=== PATIENT | male | born 1975 | race Two or more races ===

== ENCOUNTER 2017-05-30 01:41 | Emergency (ER) | payer SELFPAY ==
[2017-05-30 01:46] VITALS: RESP 16; TEMP 98.1
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
[2017-05-30 02:06] VITALS: BP 145/90; PULSE 73; O2SAT 97
== END 2017-05-30 02:07 | disposition home or self-care (01) ==
PROC: 0HQ1XZZ Repair Face Skin, External Approach (ICD-10-PCS; principal; 2017-05-30)
DX: S01.81XA Laceration without foreign body of other part of head, initial encounter (principal); Y04.0XXA Assault by unarmed brawl or fight, initial encounter; Y92.89 Other specified places as the place of occurrence of the external cause